=== PATIENT | female | born 1990 | race Caucasian/White ===

== ENCOUNTER → 2017-06-24 | Outpatient (CLI) | payer OTHER | LOC: BMCIMAGING 12:30 | PROVIDERS: ATTEND Family Medicine | DX: M79.644 Pain in right finger(s) (principal); M79.89 Other specified soft tissue disorders ==

== ENCOUNTER 2017-10-01 19:44 | Emergency (ER) | payer OTHER ==
--- NOTE | 2017-10-01 20:47 | EDPHY ---
H & P Stated Complaint: pt says she tripped/fell running, c/o lac R top of head/ abrasions to arm/workman Time Seen by Provider: 10/01/17 20:46 HPI/ROS: CHIEF COMPLAINT: Head injury, extremity abrasions after fall running HISTORY OF PRESENT ILLNESS: The patient [place] running on trail this evening when she tripped and fell forward. She struck the right side of her head. She developed a scalp hematoma and a bleeding abrasion. Additionally the patient landed on her left forearm and sustained deep abrasions to the forearm. She also has some abrasions to the dorsal aspect of her right hand. The patient reports she is currently having a 8/10 headache. She reports pain in the areas of her abrasions. She was able to ambulate following the fall. The patient reports her tetanus shot is up-to-date. She takes no regular prescription medications. REVIEW OF SYSTEMS: A comprehensive 10 point review of systems is otherwise negative aside from elements mentioned in the history of present illness. Source: Patient Exam Limitations: No limitations - Personal History Current Tetanus Diphtheria and Acellular Pertussis (TDAP): Yes Tetanus Vaccine Date: 07/2012 - Medical/Surgical History Hx Asthma: Yes Hx Chronic Respiratory Disease: No Hx Diabetes: No Hx Cardiac Disease: No Hx Renal Disease: No Hx Cirrhosis: No Hx Alcoholism: No Hx HIV/AIDS: No Hx Splenectomy or Spleen Trauma: No Other PMH: exercised induced asthma - Social History Smoking Status: Never smoked - Physical Exam Exam: General Appearance: Alert, no distress Head: Hematoma to right scalp, superficial bleeding abrasion which is nonsuturable Eyes: Pupils equal, round, reactive ENT, Mouth: No hemotympanum, no oral trauma Neck: Nontender, trachea midline Respiratory: No chest wall tender, subcutaneous air, lungs clear bilaterally Cardiovascular: Regular rate and rhythm Abdomen: Abdomen is soft and nontender, pelvis stable Skin: Multiple deep extremity abrasions greatest on the left forearm, no superficial abrasion Back: No midline T/L/S pain Extremities: Nontender, full range of motion, no snuffbox tenderness Neurological: A&Ox3, normal motor function, normal sensory exam Constitutional: Initial Vital Signs Temperature (C) 37.2 C 10/01/17 20:04 Heart Rate 50 L 10/01/17 20:04 Respiratory Rate 16 10/01/17 20:04 Blood Pressure 118/76 10/01/17 20:04 O2 Sat (%) 100 10/01/17 20:04 O2 Delivery Mode Room Air Allergies/Adverse Reactions: No Known Allergies Allergy (Verified 10/01/17 20:07) Home Medications: Medication Instructions Recorded NK [No Known Home Meds] 10/01/17 Medical Decision Making - Diagnostics Imaging Results: CT head without contrast: Images reviewed by myself and discussed with the radiologist. Negative for skull fracture or intracranial hemorrhage. ED Course/Re-evaluation: The patient presents to the ED following a mechanical fall. She has a scalp hematoma and associated moderate to severe headache. She is neurologically intact. Given her scalp hematoma and complaints of headache a CT scan of the brain was ordered evaluate for intracranial hemorrhage and skull fracture. The patient's abrasions have been cleaned and dressed with bacitracin. CT scan of the brain demonstrates no evidence of intracranial hemorrhage, skull fracture or traumatic injury. Images reviewed by myself and discussed with radiologist Dr. Domingo. Patient will be discharged home with customary closed head injury and concussion aftercare instructions. The plan will be for Tylenol and ibuprofen for management of her pain. Antibiotic ointment as needed for her abrasions. Differential Diagnosis: Differential diagnosis considered includes intracranial hemorrhage, skull fracture, concussion, extremity fracture, laceration Departure - Departure Disposition: Home, Routine, Self-Care Clinical Impression: Head injury, Abrasion Condition: Good Instructions: Head Injury (ED), Abrasion (ED) Additional Instructions: 1. Take Ibuprofen or Motrin 600 mg by mouth three times a day. 2. Apply antibiotic ointment to abrasions twice daily for the next 5 days. 3. Please follow up with the concussion specialist you have been referred to for any persistent headache or other concerns.
[2017-10-01] MEDS ORDERED: BACITRACIN OINTMENT 1 PACKET TP ONE (21:43)
[2017-10-01 21:59] VITALS: BP 123/87
== END 2017-10-01 22:00 | disposition home or self-care (01) ==
DX: S09.90XA Unspecified injury of head, initial encounter (principal); S00.01XA Abrasion of scalp, initial encounter; S50.812A Abrasion of left forearm, initial encounter; S50.811A Abrasion of right forearm, initial encounter; J45.909 Unspecified asthma, uncomplicated; W01.198A Fall on same level from slipping, tripping and stumbling with subsequent striking against other object, initial encounter; Y99.8 Other external cause status; Y93.02 Activity, running